=== PATIENT | male | born 1980 | race Two or more races ===

== ENCOUNTER 2022-01-12 10:04 | Emergency (ER) | payer SELFPAY ==
[~2022-01-12] VITALS: Ht 167.6 cm; Wt 127.3 kg
[2022-01-12 10:33] VITALS: BP 135/77
[2022-01-12] MEDS ORDERED: IBUP800T26 PO (12:51)
[2022-01-12] MEDS ORDERED: HYDR-4902 PO (12:51)
== END 2022-01-12 13:36 | disposition home or self-care (01) ==
LOC: ER 10:04
DX: M25.572 Pain in left ankle and joints of left foot (principal); M25.472 Effusion, left ankle
CPT/HCPCS: 73610